=== PATIENT | female | born 1945 | race Caucasian/White ===

== ENCOUNTER 2023-09-30 15:55 | Emergency (ER) | payer MEDICARE, OTHER, SELFPAY ==
[2023-09-30 16:00] VITALS: BP 189/99
--- NOTE | 2023-09-30 17:53 | ED.GENMED ---
History of Present Illness
General
Chief Complaint: Fall
Source: patient
Exam Limitations: none
Time Seen by Provider: 09/30/23 17:22
Nursing documentation reviewed up to this point in time: agreed with
Travel History
Have you had any contact with someone who has COVID-19?: No
Do you have any symptoms of coronavirus? Fever > 100 degrees, chills, cough, shortness of breath, sore throat, loss of taste or smell, muscle aches, or headache?: No
History of Present Illness
History of Present Illness:
Patient presents to ED after losing balance and falling backwards, hitting her head against the ground. Patient when she fell, states that her buttocks hit the ground first before she hit her head. Denies loss of consciousness. Denies neck pain.
Denies loss of sensation or weakness. Denies difficulty ambulation. Denies blurred vision. Patient reports mild lightheadedness, when she first stood up. Patient is taking Plavix.
Review of Systems
Review of Systems
Allergies reviewed?: Yes
All Other Systems: ROS reviewed and negative except as documented in HPI and ROS
Constitutional: Reports no symptoms
Cardiac: Reports no symptoms
ABD/GI: Reports no symptoms
: Reports no symptoms
Musculoskeletal: Reports no symptoms; Denies neck pain
Skin: Reports other (scalp bruising)
Neurological: Reports dizzy and headache; Denies weakness or numbness
Phy Exam
Physical Exam
Physical Exam:
Physical Exam
General: no apparent distress, not acutely ill. afebrile
Head: mild ecchymosis/swelling noted over posterior scalp without bleeding
Neck: supple. normal range of motion.
Lungs: no acute respiratory distress. clear bilaterally. chest wall nontender to palpation.
Abdomen: normal bowel sounds. not tender.
Neuro: alert and oriented. no focal neurological deficits
Skin: no rash
Psychiatric: well kept. interactive and cooperative
Extremities: no edema. no calf tenderness.
Course
Orders/Labs/Results
Orders:
Orders
09/30/23 16:[address] [CT Head W/o Iv Contrast] Urgent
Comment:
Reason For Exam: fall
09/30/23 17:52
Ice Pack-Treatment DIRECTED
Location: posterior scalp
Acetaminophen [Tylenol] 650 mg PO NOW STA
Vital Signs
Initial and Last Documented VS:
Initial Vital Signs
Temp Pulse Resp BP Pulse Ox
98.7 F 83 18 189/99 96
09/30/23 16:00 09/30/23 16:00 09/30/23 16:00 09/30/23 16:00 09/30/23 16:00
Last Documented Vital Signs
Temp Pulse Resp BP Pulse Ox
98.7 F 85 16 167/91 97
09/30/23 16:00 09/30/23 18:04 09/30/23 18:04 09/30/23 18:04 09/30/23 18:04
MDM/Problems Addressed
MDM/Problems Addressed:
CT head: NAD.
History/exam consistent with scalp hematoma from mechanical fall. Otherwise, patient is hemodynamically stable and neurologically intact, at time of discharge, to the care of her friend. Head injury precautions along with potential concussive
syndrome discussed with patient prior to discharge.
*Critical Care Note
Total Time (30-74mins, 75-104mins- exclusive of procedures): Not Applicable
ED Attending Note
-
Portions of this chart may have been created with voice recognition software.� Occasional wrong word or��sound alike� substitutions may have occurred due to the inherent limitations of voice recognition software.
Discharge Plan
Departure
Patient Disposition: Home (Routine Discharge)
Date of Disposition: 09/30/23
Time of Disposition: 18:02
Patient with high blood pressure during this ER visit?: Yes
Discharge Problem:
Head injury, Scalp hematoma
Instructions: Concussion, Adult (DC), Head Injury in Adults (DC), Contusion (DC)
Referrals:
PRIVATE,PHYSICIAN [Family Provider] -
Activity Restrictions/Additional Instructions:
As discussed, please follow-up with your primary care physician with any further concerns.
Interventions
Interventions:
*Risk Screen - Suicide Last Done: 09/30/23 16:05
*General Assessment Last Done: 09/30/23 16:05
*Neglect/Abuse Screening Last Done: 09/30/23 16:05
ED- Fall Risk Assessment Last Done: 09/30/23 18:16
*ED COVID-19 Vaccine History Last Done: 09/30/23 18:16
*Nursing Disposition Last Done: 09/30/23 18:16
ED-Musculoskeletal Assessment Last Done: 09/30/23 18:04
ED- Neurological Assessment Last Done: 09/30/23 18:04
ED-Skin Assessment Last Done: 09/30/23 18:04
Discharge Date and Time
Discharge Date/Time: 09/30/23 18:17
[2023-09-30] MEDS: TYLENOL 650 MG PO (18:03)
[2023-09-30 18:04] VITALS: BP 167/91
== END 2023-09-30 18:17 | disposition home or self-care (01) ==
LOC: EMR 15:55
PROVIDERS: EMERGENCY PHYSICIAN Emergency Medicine
DX: S00.03XA Contusion of scalp, initial encounter (principal); S09.90XA Unspecified injury of head, initial encounter; W01.0XXA Fall on same level from slipping, tripping and stumbling without subsequent striking against object, initial encounter; I10 Essential (primary) hypertension; Z79.01 Long term (current) use of anticoagulants
CPT/HCPCS: 99284; 70450